=== PATIENT | female | born 2000 | race Caucasian/White ===

== ENCOUNTER 2018-10-20 09:47 | Emergency (ER) | payer BC ==
[2018-10-20 10:50] VITALS: BP 109/71
--- NOTE | 2018-10-20 10:56 | UC ---
Lower Extremity/Ankle HPI - HPI Summary HPI Summary: Pt presents with c/o ingrown toenails of great toe's of bilateral feet. Pt states that she has been doing epsom salt soaks, applying antibiotic ointment with no improvement. - History of Current Complaint Chief Complaint: UCLowerExtremity Stated Complaint: BILATERAL GREAT TOE COMPLAINT Time Seen by Provider: 10/20/18 10:47 Hx Obtained From: Patient Hx Last Menstrual Period: 10/12/18-10/16/18 ?: No Onset/Duration: Gradual Onset, Lasting Days, Still Present, Worse Since - onset Severity Initially: Mild Severity Currently: Moderate Pain Intensity: 0 Aggravating Factor(s): Standing, Ambulation Alleviating Factor(s): Rest Able to Bear Weight: Yes - Risk Factors Gout Risk Factors: Negative DVT Risk Factors: Negative Septic Arthritis Risk Factor: Negative - Allergies/Home Medications Allergies/Adverse Reactions: Allergies Allergy/AdvReac Type Severity Reaction Status Date / Time No Known Allergies Allergy Verified 10/20/18 10:45 Home Medications: Home Medications Anxiety Med 1 tab DAILY 10/20/18 [History Confirmed 10/20/18] Bcp 1 tab DAILY 10/20/18 [History Confirmed 10/20/18] PMH/Surg Hx/FS Hx/Imm Hx Previously Healthy: Yes Psychological History: Anxiety - Surgical History Surgical History: Yes Surgery Procedure, Year, and Place: Left knee, 2003 - Family History Known Family History: Positive: Cardiac Disease - Social History Occupation: Student Lives: With Family Alcohol Use: None Substance Use Type: None Smoking Status (MU): Never Smoked Tobacco Have You Smoked in the Last Year: No - Immunization History Vaccination Up to Date: Yes Review of Systems All Other Systems Reviewed And Are Negative: Yes Constitutional: Positive: Negative Skin: Positive: Other - slight swelling and mild erythema along lateral and edges of great toes-bilateral feet Eyes: Positive: Negative ENT: Positive: Negative Respiratory: Positive: Negative Cardiovascular: Positive: Negative Gastrointestinal: Positive: Negative Genitourinary: Positive: Negative Motor: Positive: Negative Neurovascular: Positive: Negative Musculoskeletal: Positive: Edema - great toe bilateral along lateral and medial aspect Neurological: Positive: Negative Psychological: Positive: Negative Is Patient Immunocompromised?: No Physical Exam Triage Information Reviewed: Yes Appearance: Well-Appearing Vital Signs: Initial Vital Signs Temp 98 F 10/20/18 10:46 Pulse 68 10/20/18 10:46 Resp 16 10/20/18 10:46 BP 109/71 10/20/18 10:46 Pulse Ox 100 10/20/18 10:46 Vital Signs Reviewed: Yes Eye Exam: Normal ENT Exam: Normal Dental Exam: Normal Neck exam: Normal Respiratory: Positive: No respiratory distress Musculoskeletal: Positive: Edema @ - great toes bilateral lateral and medial edges of great toes, slight mount of dried discharge along lateral edges of nail bed, Neurological Exam: Normal Psychological Exam: Normal Skin Exam: Normal - mild erythema, lateral and medial edges of toenails of bialteral great toes. , Lower Extremity Course/Dx - Differential Dx/Diagnosis Differential Diagnosis/HQI/PQRI: Other - ingrown nail Provider Diagnosis: Ingrown left big toenail, Ingrown nail of great toe of right foot Discharge - Sign-Out/Discharge Documenting (check all that apply): Patient Departure All imaging exams completed and their final reports reviewed: No Studies - Discharge Plan Condition: Stable Disposition: HOME Prescriptions: Cephalexin CAP* [Keflex 500 CAP*] 500 mg PO Q8H #21 cap Patient Education Materials: Ingrown Nail (ED) Referrals: Home [facility] DPM [Doctor of Podiatric Medicine] - As Soon As Possible Corazon Gustafson PA [Primary Care Provider] - If Needed Additional Instructions: Please continue with doing epsom salt soaks as you described. - Billing Disposition and Condition Condition: STABLE Disposition: Home
== END 2018-10-20 11:03 | disposition home or self-care (01) ==
LOC: UCCORT 09:47
DX: L60.0 Ingrowing nail (principal); F41.9 Anxiety disorder, unspecified
CPT/HCPCS: 99202; G0463